=== PATIENT | female | born 1980 | race Caucasian/White ===

== ENCOUNTER 2016-09-14 09:19 | Emergency (ER) | payer OTHER ==
[~2016-09-14] VITALS: Ht 165.1 cm; Wt 160.8 kg
[2016-09-14 09:21] VITALS: TEMP 36.7; Ht 165.1 cm; Wt 160.8 kg
[2016-09-14] MEDS ORDERED: SODIUM CHLORIDE 0.9% 1000ML 1,000 ML IV STA (09:35)
[2016-09-14] MEDS ORDERED: KETOROLAC TROMETHAMINE 30 MG/ML VIAL IV STA (09:35)
[2016-09-14] MEDS ORDERED: ACETAMINOPHEN 500 MG TAB PO STA (09:35)
[2016-09-14] MEDS ORDERED: HYDROmorphone INJ 1 MG/ML SYR IV STA (09:35)
[2016-09-14] MEDS ORDERED: ONDANSETRON INJ 2 MG/ML 2 ML VIAL IV STA (09:35)
[2016-09-14 09:49] LABS: URINE APPEARANCE CLOUDY (CLEAR); URINE BILIRUBIN NEG (NEG); URINE COLOR YELLOW; URINE EPITHELIAL CELL AUTO >30 /lpf (0-5); URINE NITRITE NEG (NEG); UROBILINOGEN NEG (NEG); ZZUR CULT IF INDIC CLEAN CATCH YES
[2016-09-14 09:53] LABS: MANUAL MICROSCOPIC REQUIRED? NO; REVIEW REQ? NO
--- NOTE | 2016-09-14 09:56 | EMERGENCY ROOM VISIT NOTE ---
History Report prepared by Arian: Vincent Mayo Under the Supervision of: Dr. Nell Yeager M.D. First contact with patient: 09:32 Chief Complaint: KIDNEY STONE Stated Complaint: KIDNEY STONES History of Present Illness The patient is a 35 year old female who presents to the Emergency Room with complaints of sharp stabbing right flank pain starting this morning when she woke up. She currently rates her discomfort as a 6/10 in severity. The patient additionally complains of nausea and increased urination, though she denies any vomiting. The patient states that she has a history of kidney stones, and she states that this feels similar. She states that her last kidney stone was last November. The patient additionally states that she has a history of diabetes and cardiomyopathy. She states that she took a Percocet this morning when she woke up, and it has not helped her pain Source of History: patient Onset: this morning Position: other (right flank) Symptom Intensity: 6/10 Quality: sharp, stabbing Associated Symptoms: + nausea, + urinary symptoms, No vomiting Review of Systems See HPI for pertinent positives & negatives. A total of 10 systems reviewed and were otherwise negative. Past Medical & Surgical Medical Problems: (1) Cardiomyopathy (2) Diabetes (3) Kidney stone Social History Smoking Status: Never Smoker Marital Status: in relationship Occupation Status: employed Current/Historical Medications Scheduled Aspirin (Aspirin Ec), 81 MG PO DAILY Atorvastatin (Lipitor), 1 TAB PO DAILY Carvedilol (Coreg), 1 TAB PO BID Cholecalciferol (Vitamin D3), 5,000 UNITS PO BID Escitalopram Oxalate (Lexapro), 5 MG PO DAILY Melatonin (Kp Melatonin), 1 TAB PO HS Multivitamin (Multivitamin), 1 TAB PO DAILY Ondasetron Odt (Zofran Odt), 4 MG SL Q6H Ondasetron Odt (Zofran Odt), 4 MG SL Q6H Tamsulosin Hcl (Flomax), 0.4 MG PO DAILY Tamsulosin Hcl (Flomax), 0.4 MG PO DAILY Scheduled PRN Oxycodone/Acetaminophen 5MG/325MG (Percocet 5MG/325MG), 1-2 TABLETS PO Q4H PRN for Pain Oxycodone/Acetaminophen 5MG/325MG (Percocet 5MG/325MG), 1-2 TABLETS PO Q4H PRN for Pain Miscellaneous Medications Liraglutide (Victoza), 1.2 MG SC Lisinopril (Zestril), 2.5 MG PO Allergies Coded Allergies: Doxycycline (Unverified Allergy, Mild, vomiting, 09/14/16) Metformin (Unverified Allergy, Mild, nausea, 09/14/16) Uncoded Allergies: FLU SHOT (Allergy, Unknown, unknown, 09/14/16) Physical Exam Vital Signs Date Time Temp Pulse Resp B/P Pulse Ox O2 Delivery O2 Flow Rate FiO2 09/14/16 14:22 83 18 125/67 98 Room Air 09/14/16 13:50 86 18 142/72 99 Room Air 09/14/16 12:35 78 18 150/90 98 Room Air 09/14/16 11:10 72 18 144/81 97 Room Air 09/14/16 09:21 36.7 96 20 183/102 96 Room Air Physical Exam CONSTITUTIONAL: Moderate painful distress HEENT: No icterus, moist mucous membranes NECK: No meningismus, trachea is midline. CARDIOVASCULAR: Regular rate, normal perfusion RESPIRATORY: Unlabored breathing. Clear to auscultation. GASTROINTESTINAL: Non-tender GENITOURINARY: Right sided flank pain MUSCULOSKELETAL: Full range of motion NEUROLOGIC: No acute gross focal deficits. PSYCHIATRIC: Normal affect SKIN: Normal for ethnicity. Medical Decision & Procedures ER Provider Diagnostic Interpretation: CT results as stated below per my review and radiologist interpretation. CT SCAN OF THE ABDOMEN AND PELVIS WITHOUT IV CONTRAST CLINICAL HISTORY: Right flank pain. COMPARISON STUDY: No priors. TECHNIQUE: CT scan of the abdomen and pelvis is performed from the lung bases to the proximal femora. Images are reviewed in the axial, sagittal, and coronal planes. IV contrast was not administered for this examination. Automated dose control exposure was utilized. The examination is significantly degraded by large body habitus, and by streak artifact from the body wall abutting the CT gantry. CT DOSE: 2088.31 mGy.cm FINDINGS: Lung bases: The heart is top normal in size and there is a trace pericardial effusion. The lung bases are clear. A small hiatal hernia is noted. Liver: The unenhanced liver is enlarged, measuring 22.5 cm in length. The liver demonstrates diffusely diminished attenuation consistent with hepatic steatosis. Fatty sparing is seen adjacent to the gallbladder fossa. There is no intrahepatic biliary ductal dilatation. Gallbladder: There are numerous calcified gallstones. There is no CT evidence of acute cholecystitis. Spleen: The spleen is enlarged, measuring 15 cm in length. Pancreas: Unremarkable. Adrenal glands: Unremarkable. Kidneys: The unenhanced kidneys are normal in size. There is a 7 mm obstructing calculus at the right ureteropelvic junction, best seen on axial image #207. This is located at the level of L3 and causes moderate right hydronephrosis. There is associated right-sided perinephric stranding. There is no left-sided hydronephrosis. There is an additional 5 mm nonobstructing calculus in the right lower pole. There is a 3 mm nonobstructing calculus in the lower pole of the left kidney. There is no evidence of contour deforming renal mass lesion. Abdominal vasculature: The abdominal aorta is normal in course and caliber. Bowel: The small bowel and colon are normal in course and caliber. There is moderate colonic fecal retention. The appendix is well-visualized and normal. Peritoneum: There is no intraperitoneal free air or abdominal ascites. There is a fat-containing umbilical hernia. Lymphadenopathy: None. Pelvic viscera: The bladder, uterus, and adnexa are normal as visualized. There are bilateral ovarian follicles. Skeletal structures: No lytic or blastic lesions are seen. There are bilateral pars defects at L5 with grade 1 anterolisthesis at L5-S1. There is moderate degenerative disc space narrowing and endplate sclerosis L5-S1. Sclerotic change is also noted in the sacroiliac joints. IMPRESSION: 1. There is a 7 mm obstructing calculus at the right ureteropelvic junction. This causes moderate right hydronephrosis. 2. Additional bilateral nonobstructing renal calculi as above. 3. Hepatomegaly and severe hepatic steatosis. 4. Splenomegaly. 5. Cholelithiasis. 6. Additional changes as above. Electronically signed by: Derrell Boss M.D. 09/14/2016 10:39 AM Dictated Date/Time: 09/14/2016 10:26 AM Laboratory Results 09/14/16 09:50 Red Blood Count 4.24, Mean Corpuscular Volume 94.8, Mean Corpuscular Hemoglobin 32.3, Mean Corpuscular Hemoglobin Concent 34.1, Mean Platelet Volume 10.7, Neutrophils (%) (Auto) 61.2, Lymphocytes (%) (Auto) 30.7, Monocytes (%) (Auto) 5.8, Eosinophils (%) (Auto) 1.8, Basophils (%) (Auto) 0.2, Neutrophils # (Auto) 5.67, Lymphocytes # (Auto) 2.85, Monocytes # (Auto) 0.54, Eosinophils # (Auto) 0.17, Basophils # (Auto) 0.02 09/14/16 09:50 Test 09/14/16 09:35 09/14/16 09:50 Urine Color YELLOW Urine Appearance CLOUDY (CLEAR) Urine pH 5.0 (4.5-7.5) Urine Specific [place] 1.020 (1.000-1.030) Urine Protein 1+ (NEG) Urine Glucose (UA) 3+ (NEG) Urine Ketones NEG (NEG) Urine Occult Blood 2+ (NEG) Urine Nitrite NEG (NEG) Urine Bilirubin NEG (NEG) Urine Urobilinogen NEG (NEG) Urine Leukocyte Esterase NEG (NEG) Urine WBC (Auto) 10-30 /hpf (0-5) Urine RBC (Auto) >30 /hpf (0-4) Urine Hyaline Casts (Auto) 1-5 /lpf (0-5) Urine Epithelial Cells (Auto) >30 /lpf (0-5) Urine Bacteria (Auto) 2+ (NEG) White Blood Count 9.28 K/uL (4.8-10.8) Red Blood Count 4.24 M/uL (4.2-5.4) Hemoglobin 13.7 g/dL (12.0-16.0) Hematocrit 40.2 % (37-47) Mean Corpuscular Volume 94.8 fL (80-100) Mean Corpuscular Hemoglobin 32.3 pg (25-34) Mean Corpuscular Hemoglobin Concent 34.1 g/dl (32-36) Platelet Count 201 K/uL (130-400) Mean Platelet Volume 10.7 fL (7.4-10.4) Neutrophils (%) (Auto) 61.2 % Lymphocytes (%) (Auto) 30.7 % Monocytes (%) (Auto) 5.8 % Eosinophils (%) (Auto) 1.8 % Basophils (%) (Auto) 0.2 % Neutrophils # (Auto) 5.67 K/uL (1.4-6.5) Lymphocytes # (Auto) 2.85 K/uL (1.2-3.4) Monocytes # (Auto) 0.54 K/uL (0.11-0.59) Eosinophils # (Auto) 0.17 K/uL (0-0.5) Basophils # (Auto) 0.02 K/uL (0-0.2) RDW Standard Deviation 51.7 fL (36.4-46.3) RDW Coefficient of Variation 15.2 % (11.5-14.5) Immature Granulocyte % (Auto) 0.3 % Immature Granulocyte # (Auto) 0.03 K/uL (0.00-0.02) Anion Gap 14.0 mmol/L (3-11) Est Creatinine Clear Calc Drug Dose 127.2 ml/min Estimated GFR () 88.8 Estimated GFR (Non- 76.6 BUN/Creatinine Ratio 18.3 (10-20) Calcium Level 9.4 mg/dl (8.5-10.1) Beta-Hydroxybutyric Acid 1.88 mg/dL (0.2-2.81) Human Chorionic Gonadotropin, Qual NEG (NEG) Labs reviewed by ED physician. Medications Administered Medications (Trade) Dose Ordered Sig/Kaila Route Start Time Stop Time Status Last Admin Dose Admin Acetaminophen (Tylenol Tab) 1,000 mg NOW STAT PO 09/14/16 09:35 09/14/16 09:38 DC 09/14/16 09:49 1,000 MG Ondansetron HCl 4 mg 4 mg NOW STAT IV 09/14/16 09:35 09/14/16 09:38 DC 09/14/16 09:47 4 MG Sodium Chloride (Nss 1000ml) 1,000 ml @ 0 mls/hr Q0M STAT IV 09/14/16 09:35 09/14/16 09:38 DC 09/14/16 09:58 1,000 MLS/HR Ketorolac Tromethamine (Toradol Inj) 30 mg NOW STAT IV 09/14/16 09:35 09/14/16 09:38 DC 09/14/16 09:48 30 MG Hydromorphone HCl (Dilaudid Inj) 1 mg PRN STAT IV 09/14/16 09:35 09/14/16 09:38 DC 09/14/16 09:49 1 MG ED Course 0932: Past medical records reviewed. The patient was evaluated in room B9. A complete history and physical examination was performed. 0935: Dilaudid Inj 1mg IV, Toradol Inj 30mg IV, Sodium Chloride 1000 ml @ 0 mls/ hr wide open IV, Zofran Inj 4mg IV, Tylenol Tab 1000mg PO 0409: Upon reexamination the patient is resting. I discussed results and treatment plan with the patient. She verbalizes agreement and understanding. The patient is ready for discharge. Medical Decision Differential Diagnoses: pyelonephritis, ureterolithiasis. 35-year-old presented to the emergency room for right-sided flank pain consistent with prior episodes of ureterolithiasis. 7 mm stone identified. Patient is visiting from out of town and follow-up with her doctors when she returns. Prescriptions for Percocet, Flomax and Zofran written. Patient given a copy of CT report Impression Primary Impression: Kidney stone Scribe Attestation The scribe's documentation has been prepared under my direction and personally reviewed by me in its entirety. I confirm that the note above accurately reflects all work, treatment, procedures, and medical decision making performed by me. Departure Information Dispostion Home / Self-Care Prescriptions Tamsulosin Hcl (FLOMAX) 0.4 Mg Cap 0.4 MG PO DAILY, #10 CAP Prov: Nell Yeager MD 09/14/16 Oxycodone/Acetaminophen 5MG/325MG (PERCOCET 5MG/325MG) Tab 1-2 TABLETS PO Q4H Y for Pain, #24 TAB Prov: Nell Yeager MD 09/14/16 Ondasetron Odt (ZOFRAN ODT) 4 Mg Tab 4 MG SL Q6H for Nausea, #20 TAB Prov: Nell Yeager MD 09/14/16 Oxycodone/Acetaminophen 5MG/325MG (PERCOCET 5MG/325MG) Tab 1-2 TABLETS PO Q4H Y for Pain, #24 TAB Prov: Nell Yeager MD 09/14/16 Ondasetron Odt (ZOFRAN ODT) 4 Mg Tab 4 MG SL Q6H for Nausea, #20 TAB Prov: Nell Yeager MD 09/14/16 Tamsulosin Hcl (FLOMAX) 0.4 Mg Cap 0.4 MG PO DAILY, #10 CAP Prov: Nell Yeager MD 09/14/16 Referrals No Doctor, Assigned (PCP) Forms HOME CARE DOCUMENTATION FORM, IMPORTANT VISIT INFORMATION Patient Instructions Kidney Stones - [facility], [facility]
[2016-09-14 09:58] LABS: BASO % 0.2 %; BASO ABS # 0.02 K/uL (0-0.2); COMPLETE YES; EOS % 1.8 %; HEMATOCRIT 40.2 % (37-47); IG% 0.3 %; LYMPH % 30.7 %; LYMPH ABS # 2.85 K/uL (1.2-3.4); MEAN CELL VOLUME 94.8 fL (80-100); MEAN CORPUSCULAR HEMOGLOBIN 32.3 pg (25-34); MEAN CORPUSCULAR HGB CONC 34.1 g/dl (32-36); MEAN PLATELET VOLUME 10.7 fL (7.4-10.4); MONO % 5.8 %; NEUT % 61.2 %; PLATELET COUNT 201 K/uL (130-400); RED BLOOD COUNT 4.24 M/uL (4.2-5.4); WHITE BLOOD COUNT 9.28 K/uL (4.8-10.8)
[2016-09-14] MEDS ORDERED: CHOL1000 PO (10:10)
[2016-09-14] MEDS ORDERED: LISI-729 PO (10:10)
[2016-09-14] MEDS ORDERED: MELA1TAB5 PO (10:10)
[2016-09-14] MEDS ORDERED: MULT-506 PO (10:10)
[2016-09-14] MEDS ORDERED: ATOR-54 PO (10:10)
[2016-09-14] MEDS ORDERED: ASPI81TA28 PO (10:10)
[2016-09-14] MEDS ORDERED: ESCI1TAB6 PO (10:10)
[2016-09-14] MEDS ORDERED: CARV12.52 PO (10:10)
[2016-09-14] MEDS ORDERED: LIRA18IN SC (10:10)
[2016-09-14 10:20] LABS: PREG INTERNAL NEGATIVE QC NEG CLEAR BACKGROUND; PREG INTERNAL POSITIVE QC POS CONTROL LINE
[2016-09-14 10:27] LABS: BUN/CREATININE RATIO 18.3 (10-20); CREATININE 0.96 mg/dl (0.60-1.20); POTASSIUM 4.3 mmol/L (3.5-5.1)
[2016-09-14 10:28] LABS: CALCIUM 9.4 mg/dl (8.5-10.1)
[2016-09-14 10:37] LABS: BETA-HYDROXYBUTYRATE 1.88 mg/dL (0.2-2.81)
--- NOTE | 2016-09-14 10:40 | DIAGNOSTIC IMAGING REPORT ---
CT SCAN OF THE ABDOMEN AND PELVIS WITHOUT IV CONTRAST CLINICAL HISTORY: Right flank pain. COMPARISON STUDY: No priors. TECHNIQUE: CT scan of the abdomen and pelvis is performed from the lung bases to the proximal femora. Images are reviewed in the axial, sagittal, and coronal planes. IV contrast was not administered for this examination. Automated dose control exposure was utilized. The examination is significantly degraded by large body habitus, and by streak artifact from the body wall abutting the CT gantry. CT DOSE: 2088.31 mGy.cm FINDINGS: Lung bases: The heart is top normal in size and there is a trace pericardial effusion. The lung bases are clear. A small hiatal hernia is noted. Liver: The unenhanced liver is enlarged, measuring 22.5 cm in length. The liver demonstrates diffusely diminished attenuation consistent with hepatic steatosis. Fatty sparing is seen adjacent to the gallbladder fossa. There is no intrahepatic biliary ductal dilatation. Gallbladder: There are numerous calcified gallstones. There is no CT evidence of acute cholecystitis. Spleen: The spleen is enlarged, measuring 15 cm in length. Pancreas: Unremarkable. Adrenal glands: Unremarkable. Kidneys: The unenhanced kidneys are normal in size. There is a 7 mm obstructing calculus at the right ureteropelvic junction, best seen on axial image #207. This is located at the level of L3 and causes moderate right hydronephrosis. There is associated right-sided perinephric stranding. There is no left-sided hydronephrosis. There is an additional 5 mm nonobstructing calculus in the right lower pole. There is a 3 mm nonobstructing calculus in the lower pole of the left kidney. There is no evidence of contour deforming renal mass lesion. Abdominal vasculature: The abdominal aorta is normal in course and caliber. Bowel: The small bowel and colon are normal in course and caliber. There is moderate colonic fecal retention. The appendix is well-visualized and normal. Peritoneum: There is no intraperitoneal free air or abdominal ascites. There is a fat-containing umbilical hernia. Lymphadenopathy: None. Pelvic viscera: The bladder, uterus, and adnexa are normal as visualized. There are bilateral ovarian follicles. Skeletal structures: No lytic or blastic lesions are seen. There are bilateral pars defects at L5 with grade 1 anterolisthesis at L5-S1. There is moderate degenerative disc space narrowing and endplate sclerosis L5-S1. Sclerotic change is also noted in the sacroiliac joints. IMPRESSION: 1. There is a 7 mm obstructing calculus at the right ureteropelvic junction. This causes moderate right hydronephrosis. 2. Additional bilateral nonobstructing renal calculi as above. 3. Hepatomegaly and severe hepatic steatosis. 4. Splenomegaly. 5. Cholelithiasis. 6. Additional changes as above. Electronically signed by: Derrell Boss M.D. 09/14/2016 10:39 AM Dictated Date/Time: 09/14/2016 10:26 AM
[2016-09-14] MEDS ORDERED: ONDA4TAB10 SL ×2 (14:09→14:37)
[2016-09-14] MEDS ORDERED: TAMS0.4C38 PO ×2 (14:09→14:38)
[2016-09-14] MEDS ORDERED: OXYC-57 PO ×2 (14:10→14:38)
[2016-09-14 14:22] VITALS: BP 125/67; PULSE 83; O2SAT 98
== END 2016-09-14 14:28 | disposition home or self-care (01) ==
LOC: C.EDB 09:22
DX: N20.0 Calculus of kidney (principal); I42.9 Cardiomyopathy, unspecified; E11.9 Type 2 diabetes mellitus without complications; Z87.442 Personal history of urinary calculi; Z79.82 Long term (current) use of aspirin; Z79.899 Other long term (current) drug therapy